=== PATIENT | male | born 1955 | race Caucasian/White ===

== ENCOUNTER → 2021-07-13 10:27 | Outpatient (CLI) | payer MEDICARE, SELFPAY ==
[2021-07-13 19:22] LABS: Add Manual Diff / Slide Review NO; Basophils Absolute Auto 0 /uL (0-100); Basophils Percent Auto 0.5 % (0-2); Eosinophils Absolute Auto 100 /uL (0-450); Eosinophils Percent Auto 2.2 % (2-4); Hematocrit 38.8 % (41-53); Lymphocytes Absolute Auto 1400 /uL (1100-4500); Lymphocytes Percent Auto 20.9 % (25-40); Mean Corpuscular HGB Conc 33.6 % (30-36); Mean Corpuscular Hemoglobin 30.2 PG (26-34); Mean Corpuscular Volume 89.9 fL (80-100); Monocytes Absolute Auto 600 /uL (0-900); Monocytes Percent Auto 8.7 % (3-14); Neutrophils Absolute Auto 4700 /uL (1500-7000); Neutrophils Percent Auto 67.7 % (50-75); Platelet Count 168 X10^3/uL (150-400); Red Blood Cell Count 4.31 X10^6/uL (4.5-5.9); Red Cell Distribution Width 14.5 % (11.6-14.8); White Blood Cell Count 6.9 X10^3/uL (4.5-11.0)
[2021-07-13 19:34] LABS: Alanine Aminotransferase 24 IU/L (<50); Albumin 4.2 g/dL (3.5-5.0); Albumin Globulin Ratio 1.7 (1.0-2.8); Alkaline Phosphatase 61 U/L (38-126); Aspartate Aminotransferase 25 IU/L (17-59); Bilirubin Total 0.9 mg/dL (0.2-1.3); Blood Urea Nitrogen 15 mg/dL (9-20); Calcium 9.3 mg/dL (8.4-10.2); Carbon Dioxide 30 mmol/L (22-32); Chloride 102 mmol/L (98-107); Cholesterol 124 mg/dL (140-199); Estimated Glomerular Filt Rate > 60.0 mL/min (>60); Globulin 2.5 g/dL (1.7-4.1); Glucose 86 mg/dL (80-110); HDL Cholesterol 60 mg/dL (40-60); HEMOLYSIS < 15 (0-50); LDL Cholesterol Calculated 52 mg/dL (<100); Potassium 4.3 mmol/L (3.4-5.1); Sodium 139 mmol/L (137-145); Total Protein 6.7 g/dL (6.3-8.2); Triglycerides 58 mg/dL (35-150)
[2021-07-13 20:03] LABS: Prostate Specific Antigen Scrn 0.643 ng/mL (0.1-4.0)
== END ==
PROVIDERS: Family Provider Specialist; PCP Physician Assistant Medical; Visit Provider Family Medicine
DX: E27.1 Primary adrenocortical insufficiency (principal); I49.9 Cardiac arrhythmia, unspecified; K22.4 Dyskinesia of esophagus; Z12.5 Encounter for screening for malignant neoplasm of prostate
CPT/HCPCS: 80053; 80061; 85025; G0103

== ENCOUNTER → 2021-11-24 09:02 | Outpatient (CLI) | payer MEDICARE, SELFPAY ==
[2021-11-24 18:53] LABS: Add Manual Diff / Slide Review NO; Basophils Absolute Auto 0 /uL (0-100); Basophils Percent Auto 0.5 % (0-2); Eosinophils Absolute Auto 100 /uL (0-450); Hematocrit 41.2 % (41-53); Hemoglobin 14.1 g/dL (13.5-17.5); Lymphocytes Absolute Auto 1200 /uL (1100-4500); Lymphocytes Percent Auto 23.2 % (25-40); Mean Corpuscular HGB Conc 34.4 % (30-36); Mean Corpuscular Hemoglobin 30.7 PG (26-34); Mean Corpuscular Volume 89.2 fL (80-100); Monocytes Absolute Auto 500 /uL (0-900); Monocytes Percent Auto 9.2 % (3-14); Neutrophils Absolute Auto 3300 /uL (1500-7000); Neutrophils Percent Auto 65.1 % (50-75); Platelet Count 171 X10^3/uL (150-400); Red Blood Cell Count 4.61 X10^6/uL (4.5-5.9); Red Cell Distribution Width 14.2 % (11.6-14.8); White Blood Cell Count 5.1 X10^3/uL (4.5-11.0)
[2021-11-24 18:54] LABS: HEMOLYSIS < 15 (0-50); Iron 131 ug/dL (49-181)
[2021-11-24 18:55] LABS: Hemoglobin A1C% w Est Avg Glu 5.6 % (4.0-6.0)
[2021-11-24 19:07] LABS: Albumin 4.5 g/dL (3.5-5.0); Blood Urea Nitrogen 16 mg/dL (9-20); Calcium 9.5 mg/dL (8.4-10.2); Carbon Dioxide 28 mmol/L (22-32); Chloride 104 mmol/L (98-107); Estimated Glomerular Filt Rate > 60.0 mL/min (>60); Glucose 92 mg/dL (80-110); HEMOLYSIS < 15 (0-50); Phosphorous 3.9 mg/dL (2.3-3.7); Sodium 143 mmol/L (137-145)
[2021-11-24 19:09] LABS: Percent Iron Saturation 43 % (20-50); Total Iron Binding Capacity 305 ug/dL (261-462); Transferrin 226 mg/dL (206-381)
[2021-11-24 19:15] LABS: Luteinizing Hormone 3.17 mIU/mL
[2021-11-24 19:18] LABS: Free T4, Direct Thyroxine 1.26 ng/dL (0.78-2.19)
[2021-11-24 19:32] LABS: Thyroid Stimulating Hormone 1.88 uIU/mL (0.47-4.68)
[2021-11-28 12:12] LABS: N-Telopeptide 10.3 nmol BCE/L (5.4-24.2)
[2021-11-30 08:58] LABS: Percent Free Testosterone 3.57 % (1.50-4.20); Testosterone Free 8.85 ng/dL (5.00-21.00)
[2021-12-12 02:57] LABS: Aldosterone/Renin Activity Rat <5.6 (0.0-30.0); Plama Renin, LC/MS/MS 0.178 ng/mL/hr (0.167-5.380)
== END ==
PROVIDERS: Family Provider Specialist; PCP Physician Assistant Medical; Visit Provider Student in an Organized Health Care Education/Training Program
DX: E27.1 Primary adrenocortical insufficiency (principal)
CPT/HCPCS: 80069; 82088; 82523; 83001; 83002; 83036; 83540; 83550; 84244; 84402; 84403; 84439; 84443; 85025

== ENCOUNTER → 2023-11-14 08:56 | Outpatient (CLI) | payer MEDICARE, SELFPAY ==
[2023-11-14 19:14] LABS: Cholesterol 135 mg/dL (140-199); Glucose 93 mg/dL (80-110); HDL Cholesterol 44 mg/dL (40-60); LDL Cholesterol Calculated 63 mg/dL (<100); Triglycerides 138 mg/dL (35-150)
[2023-11-14 19:44] LABS: Cortisol AM (Before 10AM) 10.6 ug/dL (4.46-22.7); Prostate Specific Antigen Scrn 0.929 ng/mL (0.1-4.0)
[2023-11-14 20:10] LABS: Hep C Virus Ab w/Reflex Quant NEGATIVE s/c (NEGATIVE)
== END ==
PROVIDERS: Family Provider Specialist; PCP Family Medicine; Visit Provider Family Medicine
DX: E27.1 Primary adrenocortical insufficiency (principal); Z13.1 Encounter for screening for diabetes mellitus; Z11.59 Encounter for screening for other viral diseases; Z13.220 Encounter for screening for lipoid disorders; Z12.5 Encounter for screening for malignant neoplasm of prostate; Z13.6 Encounter for screening for cardiovascular disorders
CPT/HCPCS: 80061; 82533; 82947; 86803; G0103

== ENCOUNTER 2024-01-09 06:45 | Day surgery (SDC) | payer MEDICARE, SELFPAY ==
--- NOTE | 2024-01-09 | PATH_ITS ---
[facility] Accession Number: [id number] No. of containers..01 Tissue . 01 Material submitted: . cecum - CECAL POLYP . 01 Diagnosis: CECAL POLYP: Polypoid colonic mucosa with no neoplasm identified. . Specimen Comments: Additional step sections were examined. [facility] 01/21/2024 1132 Local . 01 Electronically signed: . Sj Nunez MD, Pathologist NPI- [id number] . 01 Gross description: . CECAL POLYP: Received in formalin is 1 fragment(s) of [place], soft tissue measuring 0.8 x 0.3 x 0.3 cm submitted entirely in 1 cassette(s) /[facility]PH[facility] 01/21/2024 1132 Local . 01 Pathologist provided ICD-10: K63.5 . 01 CPT . 938898 Specimen Comment: A courtesy copy of this report has been sent to [phone] Performed at: [address] [id number] MD Sj Nunez MD Phone: [phone]
[2024-01-09 07:06] VITALS: BP 134/84; PULSE 77; RESP 14; TEMP 35.8; O2SAT 100
[2024-01-09] MEDS: LACTATED RINGERS 1,000 ML 42 ML IV (07:23)
--- NOTE | 2024-01-09 07:38 | P.HP_ITS ---
History of Present Illness History of Present Illness Date Patient Seen: 01/09/24 Time Patient Seen: 07:38 Chief complaint: Dx Colonoscopy w/poss bx Narrative: Avila is a 68-year-old man here for colonoscopy. His last 1 was about 7 years ago. He has had polyps removed on prior colonoscopies. Both of his parents had colon cancer. [facility] Medical History (Updated 01/09/24 @ 07:39 by Evaristo Baca MD) Hypertension Eczema Acne Osteoarthritis Osteoporosis Chronic back pain Mumps Measles Chicken pox Kidney stones Asthma Jarad disease (~2002) Tachycardia, unspecified Lumbago Surgical History (Updated 01/09/24 @ 07:13 by Christie Fraga RN) Previous back surgery Family History Father Hyperlipidemia Stroke Mother Cancer Social History Smoking Status: Never smoker alcohol intake: never Meds Home Medications and Allergies Home Medications Medication Instructions Recorded Confirmed Type fludrocortisone 0.1 mg tablet 0.1 mg PO DAILY #90 tabs 05/25/21 01/09/24 Rx tramadol 50 mg tablet (Ultram) 50 mg PO BID PRN neuraliga #60 tabs 05/25/21 01/09/24 Rx hyoscyamine sulfate 0.125 mg 0.25 mg (2 x 0.125 mg) PO TID-QID 05/26/21 01/09/24 Rx sublingual tablet PRN dyspepsia #90 tabs promethazine 25 mg tablet 25 mg PO QID PRN nausea #60 tabs 05/26/21 01/09/24 Rx hydrocortisone 10 mg tablet 40 mg (4 x 10 mg) PO DAILY 10/02/21 01/09/24 Rx Addisons #120 tabs atenolol 50 mg tablet 50 mg PO BID #180 tabs 10/12/22 01/09/24 Rx pantoprazole 40 mg tablet,delayed 40 mg PO Q12H #180 tabs 10/12/22 01/09/24 Rx release clindamycin phosphate 1 % topical See Rx Instructions .Route 07/31/23 01/09/24 Rx gel .COMPLEX #60 grams sodium,potassium,mag sulfates 17.5 See Rx Instructions PO .COMPLEX 12/06/23 01/09/24 Rx gram-3.13 gram-1.6 gram oral soln #354 mL (Suprep Bowel Prep Kit) Allergies Allergy/AdvReac Type Severity Reaction Status Date / Time Tetracyclines Allergy Unknown Verified 11/04/23 15:40 venlafaxine [From Effexor] AdvReac Severe Hallucinati Verified 01/09/24 07:06 ons Exam Vital Signs (past 8 hours): - 01/09/24 07:06 Temperature 96.5 F L Pulse Rate 77 Respiratory Rate 14 Blood Pressure 134/84 Pulse Oximetry 100 Oxygen Delivery Method Room Air Oxygen Delivery Method Room Air Const General: healthy appearing Resp Effort & Inspection: normal respiratory effort Assessment & Plan Assessment and plan (1) Family history of colon cancer: Status: Acute (2) History of colon polyps: Status: Acute Plan We reviewed the risks and benefits of colonoscopy for colon cancer screening and he would like to proceed.
[2024-01-09 08:02] VITALS: BP 100/60; PULSE 66; RESP 16; TEMP 36.1; O2SAT 98
--- NOTE | 2024-01-09 08:06 | PM.OP.COLON ---
Operative Date/Time/Diagnoses Date of procedure: 01/09/24 Time of procedure: 08:06 Pre-op diagnosis: History of polyps Post-op diagnosis: same Procedure & Clinicians Study performed: Colonoscopy Same procedure as scheduled: Yes Surgeon: Evaristo Baca Procedure Notes Procedure in detail: Surgeon: Evaristo Baca MD Anesthesia: Dr. Green Procedure: The patient was brought to the endoscopy suite, placed in left lateral decubitus position. The patient was connected to monitoring devices. A time-out was performed. Sedation was administered. Once the patient was adequately sedated, a digital rectal exam was performed and was normal. The scope was then inserted and advanced to the cecum where the appendiceal orifice was identified and photographed. The scope was then slowly withdrawn over greater than 6 minutes. The terminal ileum was intubated and no abnormalities were seen. There was a 3 mm polyp in the cecum removed with a cold snare. No other abnormalities were seen. The scope was retroflexed in the rectum. No abnormalities were seen in the rectum. The scope was straightened and removed. The patient was awakened and brought to recovery. Scope withdrawal time: 11 minutes Sedation time: 17 minutes EBL: 2 mL Findings: Small cecal polyp Post-procedure Disposition: PACU
[2024-01-09 08:07] VITALS: BP 100/66; PULSE 66; RESP 16; O2SAT 97
[2024-01-09 08:12] VITALS: BP 106/63; PULSE 69; RESP 16; TEMP 36.2; O2SAT 98
[2024-01-09 08:24] VITALS: BP 110/70; PULSE 66; RESP 16; TEMP 36.2; O2SAT 98
== END 2024-01-09 08:29 | disposition home or self-care (01) ==
PROVIDERS: Family Provider Specialist; PCP Family Medicine; Referring Provider Surgery; Visit Provider Surgery
PROC: 0DJD8ZZ Inspection of Lower Intestinal Tract, Via Natural or Artificial Opening Endoscopic (ICD-10-PCS; CPT 45378; principal; 2024-01-09 07:45)
DX: Z12.11 Encounter for screening for malignant neoplasm of colon (principal); Z86.010 Personal history of colon polyps; K63.5 Polyp of colon
CPT/HCPCS: 45385; J2704

== ENCOUNTER → 2025-01-05 09:49 | Outpatient (CLI) | payer MEDICARE, OTHER, SELFPAY ==
[2025-01-05 19:03] LABS: Add Manual Diff / Slide Review NO; Basophils Absolute Auto 0 /uL (0-100); Basophils Percent Auto 0.6 % (0-2); Eosinophils Absolute Auto 100 /uL (0-450); Eosinophils Percent Auto 1.6 % (2-4); Hemoglobin 13.9 g/dL (13.5-17.5); Lymphocytes Absolute Auto 900 /uL (1100-4500); Mean Corpuscular HGB Conc 34.7 % (30-36); Mean Corpuscular Hemoglobin 31.1 PG (26-34); Mean Corpuscular Volume 89.7 fL (80-100); Monocytes Absolute Auto 300 /uL (0-900); Monocytes Percent Auto 6.7 % (3-14); Neutrophils Absolute Auto 3800 /uL (1500-7000); Neutrophils Percent Auto 74.1 % (50-75); Platelet Count 174 X10^3/uL (150-400); Red Blood Cell Count 4.46 X10^6/uL (4.5-5.9); Red Cell Distribution Width 14.4 % (11.6-14.8); White Blood Cell Count 5.1 X10^3/uL (4.5-11.0)
[2025-01-05 19:15] LABS: BUN Creatinine Ratio 19.3 (6-22); Blood Urea Nitrogen 17 mg/dL (9-20); Calcium 9.1 mg/dL (8.4-10.2); Carbon Dioxide 27 mmol/L (22-32); Chloride 101 mmol/L (98-107); Cholesterol 139 mg/dL (140-199); Estimated Glomerular Filt Rate > 60 mL/min (>60); Glucose 89 mg/dL (70-99); HDL Cholesterol 52 mg/dL (40-60); HEMOLYSIS < 15 (0-50); LDL Cholesterol Calculated 68 mg/dL (<100); Potassium 4.3 mmol/L (3.4-5.1); Sodium 138 mmol/L (137-145); Triglycerides 97 mg/dL (35-150)
[2025-01-05 19:45] LABS: Cortisol AM (Before 10AM) 17.9 ug/dL (4.46-22.7)
== END ==
PROVIDERS: Family Provider Specialist; PCP Family Medicine; Visit Provider Family Medicine
DX: E27.1 Primary adrenocortical insufficiency (principal); Z13.6 Encounter for screening for cardiovascular disorders; Z12.5 Encounter for screening for malignant neoplasm of prostate; K21.9 Gastro-esophageal reflux disease without esophagitis; M19.90 Unspecified osteoarthritis, unspecified site; Z13.1 Encounter for screening for diabetes mellitus
CPT/HCPCS: 80048; 80061; 82533; 85025; G0103